=== PATIENT | female | born 1975 | race Caucasian/White ===

== ENCOUNTER 2017-02-27 17:27 | Emergency (ER) | payer BC ==
[~2017-02-27] VITALS: Ht 172.7 cm; Wt 108.9 kg
[~2017-02-27 17:27] MED LIST: ACETAMINOPHEN-1 EAC1 PO; NOHOMEMEDICATIONS
[2017-02-27 17:28] VITALS: BP 146/100
== END 2017-02-27 18:57 | disposition home or self-care (01) ==
LOC: ER 17:27
DX: R20.0 Anesthesia of skin (principal); Z53.21 Procedure and treatment not carried out due to patient leaving prior to being seen by health care provider

== ENCOUNTER 2019-02-19 01:12 | Emergency (ER) | payer BC, OTHER ==
[~2019-02-19] VITALS: Ht 172.7 cm; Wt 108.9 kg
[2019-02-19] MEDS ORDERED: CELEBREX 200 M200 M1 PO (01:22)
[2019-02-19] MEDS ORDERED: IBUPROFEN 400400 M2 PO (02:40)
[2019-02-19 03:26] VITALS: BP 135/78
== END 2019-02-19 03:27 | disposition home or self-care (01) ==
LOC: ER 01:12
DX: S80.11XA Contusion of right lower leg, initial encounter (principal); V86.39XA Unspecified occupant of other special all-terrain or other off-road motor vehicle injured in traffic accident, initial encounter; Y93.89 Activity, other specified; Y92.89 Other specified places as the place of occurrence of the external cause; Y99.8 Other external cause status

== ENCOUNTER 2020-09-15 15:16 | Emergency (ER) | payer BC, OTHER ==
[~2020-09-15] VITALS: Ht 172.7 cm; Wt 111.6 kg
[~2020-09-15 15:16] MED LIST changes: +CELEBREX 200 M200 M1 PO; +IBUPROFEN 400400 M2 PO
[2020-09-15] MEDS ORDERED: ADDERALL 10 MG10 MG (15:48)
[2020-09-15] MEDS ORDERED: VALTREX 500 MG500 M1 (15:48)
[2020-09-15] MEDS ORDERED: PREDNISONE 20 M20 M1 PO (16:12)
[2020-09-15] MEDS ORDERED: PROAIR HFA8.5 GM INH (16:12)
[2020-09-15] MEDS ORDERED: ZPAK PO (16:54)
[2020-09-15 17:02] VITALS: BP 160/88
== END 2020-09-15 17:03 | disposition home or self-care (01) ==
LOC: ER 15:16
DX: U07.1 COVID-19 (principal); Z79.899 Other long term (current) drug therapy

== ENCOUNTER → 2021-07-06 | Outpatient (CLI) | payer BC, OTHER ==
[~2021-07-06] MED LIST changes: +ADDERALL 10 MG10 MG; +PREDNISONE 20 M20 M1 PO; +PROAIR HFA8.5 GM INH; +VALTREX 500 MG500 M1; +ZPAK PO
== END ==
LOC: RAD 16:08
PROVIDERS: ATTEND Pediatrics
DX: R05 Cough (principal); R06.00 Dyspnea, unspecified